=== PATIENT | female | born 1990 | race Caucasian/White ===

== ENCOUNTER 2020-03-14 16:37 | Emergency (ER) | payer OTHER ==
[2020-03-14 16:53] VITALS: BP 105/70; PULSE 99; TEMP 99.2; BMI 31.3
== END 2020-03-14 19:46 | disposition home or self-care (01) ==
LOC: JERFT 16:37
DX: R09.89 Other specified symptoms and signs involving the circulatory and respiratory systems (principal)
CPT/HCPCS: 70360-TC-FY; 70490-TC; 99284-25

== ENCOUNTER 2020-10-12 01:11 | Observation (INO) | payer OTHER ==
[2020-10-12 01:30] VITALS: BMI 22.9
[2020-10-12] MEDS ORDERED: SODIUM CHLORIDE 0.9% 500 ML INFUS.BAG IV ONE (01:46)
[2020-10-12] MEDS ORDERED: ACETAMINOPHEN 500 MG TABLET (FP) PO ONE (01:46)
[2020-10-12] MEDS ORDERED: ACETAMINOPHEN 325 MG TABLET (FP) ONE (02:05)
[2020-10-12 02:43] LABS: BASO % 0.4 % (0-2.0); EOS % 0.8 % (0-4.5); HEMATOCRIT 38.7 % (32.4-45.2); HEMOGLOBIN 13.1 GM/dL (10.7-15.3); LYMPH % 24.1 % (8-40); MCH 30.5 pg (25.7-33.7); MCHC 33.8 g/dl (32.0-36.0); MEAN CELL VOLUME 90.2 fl (80-96); MEAN PLT VOLUME 8.3 fl (7.5-11.1); NEUT % 66.7 % (42.8-82.8); PLATELET COUNT 277 10^3/uL (134-434); RBC 4.29 M/mm3 (3.60-5.2); RDW 13.7 % (11.6-15.6); WHITE BLOOD COUNT 9.4 K/mm3 (4.0-10.0)
[2020-10-12 03:01] LABS: CHLORIDE 108 mmol/L (98-107); SODIUM 140 mmol/L (136-145)
[2020-10-12 03:03] LABS: CALCIUM 8.8 mg/dL (8.5-10.1)
[2020-10-12 03:04] LABS: ALBUMIN 4.3 g/dl (3.4-5.0); ANION GAP 11 MMOL/L (8-16); CO2 21 mmol/L (21-32); GLUCOSE,RANDOM 93 mg/dL (74-106)
[2020-10-12 03:07] LABS: CREATININE 0.7 mg/dL (0.55-1.3); SGOT/AST 14 U/L (15-37); SGPT/ALT 27 U/L (13-61)
[2020-10-12 03:09] LABS: BILIRUBIN,TOTAL 0.3 mg/dL (0.2-1); TOT PROT 7.9 g/dl (6.4-8.2)
[2020-10-12 03:10] LABS: ALK PHOS 80 U/L (45-117)
[2020-10-12] MEDS ORDERED: POTASSIUM CHLORIDE ORAL LIQUID 20 MEQ/15 ML PO ONE (03:14)
[2020-10-12] MEDS ORDERED: IBUPROFEN 600 MG TABLET (FP) PO ONE ×2 (03:22→03:32)
[2020-10-12] MEDS ORDERED: POTASSIUM CHLORIDE ORAL LIQUID 20 MEQ/15 ML ONE (03:33)
[2020-10-12] MEDS ORDERED: ACETAMINOPHEN 325 MG TABLET (FP) PO PRN (06:13)
[2020-10-12 10:09] LABS: CHLORIDE 112 mmol/L (98-107); SODIUM 141 mmol/L (136-145)
[2020-10-12 10:10] LABS: CALCIUM 8.1 mg/dL (8.5-10.1)
[2020-10-12 10:11] LABS: ANION GAP 7 MMOL/L (8-16); BLOOD UREA NITROGEN 10.1 mg/dL (7-18); CO2 22 mmol/L (21-32); MAGNESIUM 2.3 mg/dL (1.8-2.4)
[2020-10-12 10:14] LABS: CREATININE 0.6 mg/dL (0.55-1.3); PHOSPHOROUS 3.1 mg/dL (2.5-4.9)
[2020-10-12 10:23] LABS: GLUCOSE,RANDOM 109 mg/dL (74-106)
[2020-10-12 16:47] VITALS: BP 102/60; PULSE 74; TEMP 98.1
== END 2020-10-12 16:00 | disposition home or self-care (01) ==
LOC: JER 01:11 → UNDOADMOB 04:08 → INTOOBSV 04:08 → JERBED 04:08
PROVIDERS: ADMIT Hospitalist; ATTEND Internal Medicine
DX: R07.89 Other chest pain (principal); E87.6 Hypokalemia; R55 Syncope and collapse
CPT/HCPCS: 36415; 71045-TC-FY; 80048; 80053; 82550; 83735; 84100; 84443; 84484; 84703; 85025; 85379; 93005; 93010; 93306-TC; 99285-25; C9803; G0378; U0003; U0005

== ENCOUNTER 2023-05-27 18:57 | Emergency (ER) | payer OTHER ==
[2023-05-27 19:13] VITALS: BP 139/70; PULSE 88; RESP 18; TEMP 97.7; BMI 24.2
[2023-05-27] MEDS ORDERED: METOCLOPRAMIDE HCL INJECTION 10 MG/2 ML VIAL ONE (20:50)
[2023-05-27] MEDS ORDERED: ACETAMINOPHEN INJECTION 100 ML IVPB ONE (20:50)
[2023-05-27] MEDS ORDERED: FAMOTIDINE 20 MG/50 ML IVPB 20 MG/50 ML MG IVPB ONE (20:51)
[2023-05-27] MEDS: LACTATED RINGERS SOLUTION 1000 ML INFUS.BAG IV ONE (21:12)
[2023-05-27] MEDS: METOCLOPRAMIDE HCL INJECTION 10 MG/2 ML VIAL IVPUSH ONE (21:12)
[2023-05-27] MEDS: FAMOTIDINE 20 MG/50 ML IVPB 20 MG/50 ML MG IVPB ONE (21:12)
[2023-05-27] MEDS: ACETAMINOPHEN 1000 MG/100 ML BAG IVPB ONE (21:13)
[2023-05-27 21:46] LABS: POTASSIUM 3.7 mmol/L (3.5-5.1)
[2023-05-27 21:49] LABS: BLOOD UREA NITROGEN 8.4 mg/dL (7-18); MAGNESIUM 2.1 mg/dL (1.8-2.4)
[2023-05-27 21:52] LABS: CREATININE 0.6 mg/dL (0.55-1.3)
[2023-05-27 21:53] LABS: BILIRUBIN,TOTAL 0.3 mg/dL (0.2-1); TOT PROT 7.8 g/dl (6.4-8.2)
[2023-05-27 22:06] LABS: BASO % 0.3 % (0-2.0); EOS % 0.6 % (0-4.5); HEMATOCRIT 39.3 % (32.4-45.2); HEMOGLOBIN 13.1 GM/dL (10.7-15.3); LYMPH % 17.7 % (8-40); MCH 30.2 pg (25.7-33.7); MCHC 33.4 g/dl (32.0-36.0); MEAN CELL VOLUME 90.5 fl (80-96); MEAN PLT VOLUME 8.4 fl (7.5-11.1); MONO % 5.4 % (3.8-10.2); PLATELET COUNT 280 10^3/uL (134-434); RBC 4.34 M/mm3 (3.60-5.2); RDW 13.8 % (11.6-15.6); WHITE BLOOD COUNT 8.8 K/mm3 (4.0-10.0)
== END 2023-05-27 23:01 | disposition home or self-care (01) ==
LOC: JER 18:57
PROC: 3E033GC Introduction of Other Therapeutic Substance into Peripheral Vein, Percutaneous Approach (ICD-10-PCS; principal; 2023-05-27)
PROC: 3E033GC Introduction of Other Therapeutic Substance into Peripheral Vein, Percutaneous Approach (ICD-10-PCS; 2023-05-27)
PROC: 3E033NZ Introduction of Analgesics, Hypnotics, Sedatives into Peripheral Vein, Percutaneous Approach (ICD-10-PCS; 2023-05-27)
DX: G43.909 Migraine, unspecified, not intractable, without status migrainosus (principal); F41.8 Other specified anxiety disorders; R07.9 Chest pain, unspecified; M79.602 Pain in left arm; R20.2 Paresthesia of skin; R42 Dizziness and giddiness; H53.8 Other visual disturbances; Z20.822 Contact with and (suspected) exposure to COVID-19
CPT/HCPCS: 0241U-QW; 36415; 70450-TC; 71045-TC-FY; 80053; 83735; 84484; 84703; 85025; 93005; 93010; 99285-25; J0131